=== PATIENT | male | born 1990 | race Two or more races ===

== ENCOUNTER 2020-05-20 05:00 | Day surgery (SDC) | payer OTHER ==
[2020-05-20] MEDS ORDERED: TRAMADOL HCL50 MG PO (09:15)
[2020-05-20] MEDS ORDERED: CEPHALEXIN500 MG PO (09:16)
[2020-05-20] MEDS ORDERED: KAOPECTATE240 MG PO (09:17)
[2020-05-20] MEDS ORDERED: PROTONIX40 MG PO (09:18)
== END 2020-05-20 14:51 | disposition home or self-care (01) ==
LOC: CIR.AMB 05:00
PROVIDERS: ATTEND Surgery
DX: K40.90 Unilateral inguinal hernia, without obstruction or gangrene, not specified as recurrent (principal); Z20.828 Contact with and (suspected) exposure to other viral communicable diseases

== ENCOUNTER 2021-01-07 17:40 | Emergency (ER) | payer OTHER ==
[~2021-01-07] VITALS: Ht 175.3 cm; Wt 81.6 kg
[~2021-01-07 17:40] MED LIST: CEPHALEXIN500 MG PO; KAOPECTATE240 MG PO; PROTONIX40 MG PO; TRAMADOL HCL50 MG PO
[2021-01-08] MEDS ORDERED: CIPRO500 MG PO (10:15)
[2021-01-08] MEDS ORDERED: METRONIDAZOLE500 MG PO (10:16)
[2021-01-08] MEDS ORDERED: INTESTINEX680 M1 PO (10:16)
== END 2021-01-08 11:59 | disposition home or self-care (01) ==
LOC: ER 17:40
DX: K57.32 Diverticulitis of large intestine without perforation or abscess without bleeding (principal); R10.2 Pelvic and perineal pain; R50.9 Fever, unspecified; Z11.52 Encounter for screening for COVID-19

== ENCOUNTER 2021-02-04 01:36 | Emergency (ER) | payer OTHER ==
[~2021-02-04] VITALS: Ht 175.3 cm; Wt 79.4 kg
[~2021-02-04 01:36] MED LIST changes: +CIPRO500 MG PO; +INTESTINEX680 M1 PO; +METRONIDAZOLE500 MG PO
== END 2021-02-04 08:00 | disposition home or self-care (01) ==
LOC: ER 01:36
DX: K57.92 Diverticulitis of intestine, part unspecified, without perforation or abscess without bleeding (principal); R10.31 Right lower quadrant pain

== ENCOUNTER 2021-03-10 00:28 | Emergency (ER) | payer OTHER ==
[~2021-03-10] VITALS: Ht 175.3 cm; Wt 74.8 kg
[2021-03-10] MEDS ORDERED: ALLEGRA ALLERG180 MG PO (04:38)
== END 2021-03-10 04:41 ==
LOC: ER 00:28
DX: L29.8 Other pruritus (principal)

== ENCOUNTER 2021-03-12 07:31 | Outpatient (CLI) | payer OTHER ==
[~2021-03-12 07:31] MED LIST changes: +ALLEGRA ALLERG180 MG PO
== END 2021-03-12 07:36 | disposition home or self-care (01) ==
LOC: RAD 07:31
PROVIDERS: ATTEND Family Medicine
DX: L29.8 Other pruritus (principal); B96.0 Mycoplasma pneumoniae [M. pneumoniae] as the cause of diseases classified elsewhere; E88.09 Other disorders of plasma-protein metabolism, not elsewhere classified

== ENCOUNTER 2021-05-21 07:34 | Outpatient (CLI) | payer OTHER | END 2021-05-21 07:41 | disposition home or self-care (01) | LOC: SONOGRAMA 07:34 | DX: K59.09 Other constipation (principal) ==

== ENCOUNTER → 2021-07-11 | Outpatient (CLI) | payer OTHER | END | disposition home or self-care (01) | LOC: RAD 13:31 | DX: K59.09 Other constipation (principal) ==

== ENCOUNTER 2021-11-28 11:09 | Outpatient (CLI) | payer OTHER | END 2021-11-28 11:14 | disposition home or self-care (01) | LOC: TOM 11:09 | PROVIDERS: ATTEND Otolaryngology | DX: J31.0 Chronic rhinitis (principal) ==

== ENCOUNTER → 2022-04-09 | Outpatient (CLI) | payer OTHER | END | disposition home or self-care (01) | LOC: RAD 12:12 | PROVIDERS: ATTEND Family Medicine | DX: M54.9 Dorsalgia, unspecified (principal) ==

== ENCOUNTER 2023-01-04 09:49 | Outpatient (CLI) | payer OTHER | END 2023-01-04 09:54 | disposition home or self-care (01) | LOC: SONOGRAMA 09:49 | PROVIDERS: ATTEND Physical Medicine & Rehabilitation | DX: M65.4 Radial styloid tenosynovitis [de Quervain] (principal); M65.311 Trigger thumb, right thumb; M65.321 Trigger finger, right index finger ==